=== PATIENT | female | born 1960 | race Caucasian/White ===

== ENCOUNTER 2016-09-10 08:10 | Emergency (ER) | payer BC ==
[~2016-09-10] VITALS: Ht 160 cm; Wt 60.1 kg
[~2016-09-10 08:10] MED LIST: FLEXERIL10 MG PO; LORTAB 5-325 M1 EACH PO; NAPROSYN500 MG PO
[2016-09-10 09:28] LABS: HEMATOCRIT 45.3 % (36.0-46.0); MCH 29.8 PG (29.0-34.0); MCHC 32.5 G/DL (30.0-36.0); MCV 91.9 FL (83-99); MEAN PLAT.VOLUME 10.2 uM^3 (9.5-12.4); PLATELET COUNT 306 K/uL (156-360); RBC DIS.WIDTH-CV 12.9 % (11.8-14.6); RBC DIS.WIDTH-SD 43.4 % (39-53); RED BLOOD COUNT 4.93 M/uL (3.80-5.20); WHITE BLOOD COUNT 4.8 K/uL (4.1-10.2)
[2016-09-10 09:53] LABS: TROP-I INTERPRETATION NEGATIVE; TROPONIN-I < 0.01 ng/mL (0.0-0.30)
[2016-09-10 10:08] LABS: ANION GAP 7 MEQ/L (2-14); CHLORIDE 108 MEQ/L (99-109); GFR ESTIMATE (CALCULATED) > 59 mL/min/; GLUCOSE 99 mg/dL (70-99); POTASSIUM 4.3 MEQ/L (3.7-5.4); SAMPLE HEMOLYSIS CHECK 0; SAMPLE ICTERIC CHECK 0; SAMPLE LIPEMIA CHECK 0; SODIUM 141 MEQ/L (136-147); UREA NITROGEN (BUN) 13 mg/dL (9-23)
[2016-09-10 12:27] VITALS: BP 128/73
== END 2016-09-10 12:27 | disposition home or self-care (01) ==
LOC: EME 08:10
DX: R20.2 Paresthesia of skin (principal); R20.0 Anesthesia of skin; R51 Headache; R06.02 Shortness of breath; R07.9 Chest pain, unspecified; F17.200 Nicotine dependence, unspecified, uncomplicated
CPT/HCPCS: 70450; 70551; 71020; 80048; 84484; 85027; 93005; 99281; 99284